=== PATIENT | female | born 1930 | race Caucasian/White ===

== ENCOUNTER 2019-06-08 09:21 | Observation (INO) ==
[2019-06-08 12:15] LABS: BASO# 0.01 X1000 (0.0-0.2); BASO% 0.2 % (0.0-0.8); EOS# 0.07 X1000 (0.0-0.7); EOS% 1.6 % (0.0-10.0); HEMATOCRIT 33.2 % (37.0-47.0); LYMPH# 1.58 X1000 (1.2-3.4); LYMPH% 36.6 % (20.5-51.1); MCH 29.5 PG (27-31); MCHC 33.1 g/dL (33-37); MONO# 0.41 X1000 (0.11-0.59); MONO% 9.5 % (1.7-9.3); MPV 8.8 FL (7.4-10.4); NEUT# 2.25 X1000 (1.4-6.5); NEUT% 52.1 % (42.2-75.2); PLT 140 X1000 (130-400); RBC 3.73 XMIL (4.2-5.4); RDW 14.4 % (11.5-14.5); WBC 4.32 X1000 (4.8-10.8)
--- NOTE | 2019-06-08 12:16 | Diag Imaging Result Doc PS360 ---
EXAM: CHEST-PORTABLE 06/08/2019 HISTORY: SOB TECHNIQUE: AP portable upright at 1204 COMMENT: There is no evidence of acute cardiac or pulmonary disease. There is an apparent fracture of the proximal left humerus which may be new since 01/23/2018. Otherwise are has been no significant change in the appearance of the chest. IMPRESSION: No evidence of acute cardiopulmonary disease. Electronically signed by Hossein Bennett 06/08/2019 12:14 PM
[2019-06-08] MEDS ORDERED: TYLENOL PO PRN (12:18)
[2019-06-08 12:41] LABS: ALB/GLOB RATIO 1.4; ALBUMIN 3.7 g/dL (3.5-5.0); CALCIUM 8.5 mg/dL (8.8-10.2); MAGNESIUM 2.4 mg/dL (1.5-2.7); PHOSPHORUS 4.3 mg/dL (2.7-4.5); POTASSIUM 4.5 mmol/L (3.5-5.1); TOTAL BILIRUBIN 0.25 mg/dL (0.20-1.00); TOTAL PROTEIN 6.3 g/dL (6.3-8.3)
[2019-06-08] MEDS: ISORDIL PO SCH ×2 (14:39→21:46)
[2019-06-08] MEDS: CARAFATE PO SCH ×2 (14:39→21:46)
[2019-06-08] MEDS: HEPARIN SUBQ SCH ×2 (14:39→21:47)
--- NOTE | 2019-06-08 14:40 | Diag Imaging Result Doc PS360 ---
EXAM: CT HEAD W/O CONTRAST 06/08/2019 HISTORY: encephalopathy TECHNIQUE: This exam was performed using automated exposure control, adjustment of mA or kV according to patient size, and/or use of iterative reconstruction technique. COMMENT: There is no evidence of mass effect, bleed, or abnormal extra-axial fluid collection. There are some calcifications in the left basal ganglia. Compared to the previous study of 12/31/2018 there has been no appreciable change in the appearance the brain. The visualized paranasal sinuses are clear. There is fluid in the middle ear on the left and there has been apparent previous left mastoidectomy. IMPRESSION: Stable CT of the head. Electronically signed by Hossein Bennett 06/08/2019 2:38 PM
--- NOTE | 2019-06-08 14:50 | ECHO REPORT ---
ORDER DATE: 06/08/2019 INTERPRETING PHYSICIAN: Dr. Gene Gould ECHOCARDIOGRAPHIC MEASUREMENTS: 1. Interventricular septum: 0.9 cm. 2. Posterior wall: 0.9 cm. 3. Diastolic diameter: 4.9 cm. 4. Left atrium: 3.6 cm. 5. Aortic root: 2.8 cm. SUMMARY OF THE 2-DIMENSIONAL IMAGIN. Mitral valve was normal. 2. Tricuspid valve was normal. 3. Aortic valve leaflets were trileaflet, mildly sclerosed, opening normally. 4. Pulmonic valve was normal. 5. There is mild left atrial enlargement. There is mitral annular calcification. 6. Normal left ventricular cavity size. Estimated ejection fraction of 65%. 7. There is diastolic dysfunction. 8. Mild mitral regurgitation. 9. Moderate tricuspid regurgitation. Peak velocity across the tricuspid valve was 3.5 m/sec. 10. Pulmonary artery systolic pressure of 58 mmHg. There is pulmonary arterial hypertension. 11. Peak velocity across the aortic valve less than 2 m/sec. By Doppler studies, there is no aortic stenosis or regurgitation. 12. There is no pericardial effusion or obvious intracardiac mass or thrombus. cc: MD Asim Lovett MD
[2019-06-08 15:12] LABS: URINE SOURCE CLEAN CATCH
[2019-06-08 15:16] LABS: BILIRUBIN URINE NEGATIVE (NEGATIVE); BLOOD URINE NEGATIVE (NEGATIVE); COLOR STRAW; GLUCOSE URINE NEGATIVE (NEGATIVE); KETONE URINE NEGATIVE (NEGATIVE); LEUKOCYTES URINE LARGE (NEGATIVE); NITRITE URINE NEGATIVE (NEGATIVE); PH URINE 6.5; PROTEIN URINE 70 mg/dL (NEGATIVE); SP GRAVITY URINE 1.005; TURBIDITY URINE HAZY (CLEAR); UROBILINOGEN URINE NORMAL (NORMAL)
[2019-06-08 15:17] LABS: UR EPITHELIAL CELLS <10 /HPF (<10); URINE BACTERIA 4+ /HPF; URINE RBC <10 /HPF (<10); URINE WBC TNTC /HPF (<10)
--- NOTE | 2019-06-08 17:32 | HISTORY AND PHYSICAL ---
CHIEF COMPLAINT: Presyncope. 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 She came in today and was sent by her primary doctor due to a pre syncopal episode today. She was told that the sodium level was low. Today in the morning she had blurry vision and headache located in the occipital area, radiated to the neck and shoulders, and some kind of generalized pain. Her daughter, which is at the bedside, gave her some fluids including water and Gatorade and she felt better. At the moment of my physical exam she seems to be doing good. She is completely alert and oriented. She does not have any focal deficits. We ask for an echocardiogram, carotid ultrasound and a CT scan of the head, chest x-ray as well. Chest x-ray did not show any evidence of acute full cardiopulmonary disease. Head CT scan without changes and an echocardiogram is significant for a pulmonary hypertension, but she does have an estimated ejection fraction of 65%. She has a some degree of diastolic dysfunction,pending carotic ultrasound. Laboratory showed a sodium level is 131 with a creatinine of 1, which looks like her baseline. She has bacteria in the urine as well as protein, some hyperglycemia, so I will check the A1c. I have started this patient on her home medications and I will use hydralazine as needed for hypertension. Depending on her lab work tomorrow I will get the either cardiology or nephrology department. I will keep an eye on her. She denies nausea, vomiting, diarrhea, constipation, headache, neck pain, chest pain, no tingling sensation or is or any specific/focal weakness. REVIEW OF SYSTEMS: All the 14 points of review of systems were reviewed all of them negative except as per HPI. PAST MEDICAL HISTORY: 1. Hyperthyroidism, treated with radioactive iodine, now she has hypothyroidism treated with levothyroxine. 2. Macular degeneration. 3. Decreased hearing, artificial ear drum. 4. Dementia. 5. Increased cholesterol. 6. Hyponatremia. 7. Medical history of multiple syncopal episodes. PAST SURGICAL HISTORY: 1. Right knee replacement. 2. Multiple ear multiple ear surgeries. 3. 2 back surgeries. 4. She had a history of left humeral fracture with no surgical treatment. 5. Carpal tunnel syndrome repair. FAMILY HISTORY: Mother with hypertension. She has 2 aunts with cervical cancer, 2 uncles with coronary artery disease. SOCIAL HISTORY: She lives with with . She uses a cane to be able to walk. No history of drug, alcohol, or tobacco abuse. ALLERGIES: Statins, and shellfish. PHYSICAL EXAMINATION: Vital signs temperature 98 degrees, pulse 78, respiratory rate 16, blood pressure 149/60, oxygen saturation 97% on room air. HEENT: Head normocephalic, no trauma. PERRLA. NECK: Neck is supple. No JVD. No masses. Central trachea. CHEST: Clear to auscultation. No wheezing. No rales. CARDIOVASCULAR: RRR. Possible systolic murmur. ABDOMEN: Soft, nontender, nondistended. No hepatosplenomegaly. EXTREMITIES: No edema no clubbing no cyanosis. NEUROLOGICAL: This patient is alert. She is oriented. She is able to answer all my questions. She moves all 4 extremities spontaneously. No focal weakness. She is able to recognize family members at the bedside and follow commands. LABORATORY: WBC 4.3, hemoglobin 11, hematocrit 33.2, platelets 140,000. Sodium 131, potassium 4.5, chloride 98, bicarbonate 23, BUN 39, creatinine 1, glucose 111, calcium 8.5, phosphorus 4.3, magnesium 2.4. LFTs within normal limits. Urinalysis with too numerous to count WBC, leukocyte count large, some protein and 4+ bacteria. ASSESSMENT AND PLAN: 1. Presyncopal episode in a patient with medical history of syncope. I had a CT scan of the head that is negative. I am getting a carotid ultrasound and also orthostatic vital sign., for now I will put her on a diet and I will continue her medications. She is feeling much better after receiving some fluids at home. Her kidney function is around her baseline. I will monitor this patient closely. Echocardiogram did not show any problem with ejection fraction but she has pulmonary hypertension. 2. Hyponatremia. Apparently, she has been having this problem for a little bit and actually I have multiple studies from this month and this year showing hyponatremia the lowest is 127. We will monitor for now. I do not think this is the cause of her presyncopal and syncopal episodes. We will monitor. Probably she needs to be seen by nephrology department. 3. Uncontrolled hypertension. As per the patient and the daughter, they have been trying multiple medication to try to control the blood pressure. I have placed this patient back on her home medications and I will monitor this patient closely. Let us see how she does with those medications. As per the daughter she has been up and down, which is either too high or too low. 4. Hypothyroidism, continue with levothyroxine. 5. Constipation continue with docusate. 6. Vitamin vitamin B12 deficiency. Continue with cyanocobalamin. 7. Further recommendations pending hospital course. cc: Asim Welsh MD
[2019-06-08] MEDS: OCUVITE LUTEIN & ZEAXANTHIN PO SCH (21:46)
[2019-06-08] MEDS: MELATONIN PO SCH (21:46)
[2019-06-08] MEDS: COLACE PO SCH (21:46)
[2019-06-09] MEDS: APRESOLINE IV PRN ×3 (00:58→20:54)
[2019-06-09] MEDS: HEPARIN SUBQ SCH ×3 (05:10→20:53)
[2019-06-09 06:21] LABS: BASO# 0.02 X1000 (0.0-0.2); BASO% 0.4 % (0.0-0.8); EOS# 0.11 X1000 (0.0-0.7); EOS% 2.4 % (0.0-10.0); HEMATOCRIT 35.9 % (37.0-47.0); HEMOGLOBIN 12.1 g/dL (12.0-16.0); IMM GRAN# 0.03 X1000 (0.0-0.04); IMM GRAN% 0.6 % (0.0-0.5); LYMPH% 30.1 % (20.5-51.1); MCH 29.9 PG (27-31); MCHC 33.7 g/dL (33-37); MCV 88.6 FL (81-99); MONO# 0.43 X1000 (0.11-0.59); MONO% 9.2 % (1.7-9.3); MPV 9.5 FL (7.4-10.4); NEUT# 2.66 X1000 (1.4-6.5); NEUT% 57.3 % (42.2-75.2); PLT 152 X1000 (130-400); RBC 4.05 XMIL (4.2-5.4); RDW 14.3 % (11.5-14.5); WBC 4.65 X1000 (4.8-10.8)
[2019-06-09] MEDS: SYNTHROID PO SCH (06:24)
[2019-06-09 06:31] LABS: HEMOGLOBIN A1C 6.3 % (4.8-6.0)
[2019-06-09 06:37] LABS: AGAP 8; BUN 28 mg/dL (8-22); CALCIUM 9.5 mg/dL (8.8-10.2); CHLORIDE 99 mmol/L (98-107); COSMO 269; CREATININE 0.8 mg/dL (0.5-0.9); ESTIMATED GFR > 60; GLUCOSE 112 mg/dL (70-104); MAGNESIUM 2.2 mg/dL (1.5-2.7); POTASSIUM 4.1 mmol/L (3.5-5.1); SODIUM 131 mmol/L (136-145); TCO2 24 mmol/L (25-35)
--- NOTE | 2019-06-09 07:00 | EKG Report ---
Test Performed on : 06/09/2019 06:17:09 AM Test Reason : chest pain Blood Pressure : / mmHG Vent. Rate : 056 BPM Atrial Rate : 056 BPM P-R Int : 156 ms QRS Dur : 072 ms QT Int : 428 ms P-R-T Axes : 074 068 081 degrees QTc Int : 413 ms Sinus bradycardia. Possible Septal infarct , age undetermined Abnormal ECG When compared with ECG of 31-DEC-2018 11:18, Possible Septal infarct is now present Confirmed by Kavon Earl MD ([id number]) on 06/09/2019 9:10:14 AM
[2019-06-09] MEDS: VITAMIN B-12 PO SCH (09:16)
[2019-06-09] MEDS: CARAFATE PO SCH ×3 (09:16→20:54)
[2019-06-09] MEDS: ISORDIL PO SCH ×3 (09:16→22:59)
[2019-06-09] MEDS: OCUVITE LUTEIN & ZEAXANTHIN PO SCH ×2 (09:16→20:53)
[2019-06-09] MEDS: COLACE PO SCH ×2 (09:16→20:53)
[2019-06-09] MEDS: ASPIRIN PO SCH (09:24)
[2019-06-09] MEDS ORDERED: CATAPRES PO PRN (10:41)
[2019-06-09] MEDS ORDERED: APRESOLINE IV PRN (10:55)
--- NOTE | 2019-06-09 11:03 | Carotid Study ---
DATE: 06/08/2019 PROCEDURE: Carotid duplex imaging. REFERRING PHYSICIAN: Asim Welsh MD. INTERPRETING PHYSICIAN: Nakul Mclain MD. TECH: [place]. INDICATIONS: Syncope. OBSERVED DATA RIGHT LEFT Brachial Blood Pressure Carotid Pulse Bruits: Carotid/Sub DIAGRAM OF ULTRASOUND IMAGING R L RIGHT INT EXT INT EXT LEFT Blayne (cm/s) Blayne (cm/s) Subclavian Subclavian CCA Proximal CCA Proximal CCA Distal CCA Distal Bulb Bulb ICA Proximal ICA Proximal ICA Mid ICA Mid ICA Distal ICA Distal ECA ECA Vertebral Vertebral ICA/CCA Ratio ICA/CCA Ratio % Stenosis % Stenosis FINDINGS: There is irregular calcific plaque at the takeoff of the right internal carotid artery, however, there are no significantly elevated velocities or turbulent flow in either carotid system. There is antegrade vertebral flow bilaterally. Percent stenosis is 0-39% bilaterally. PHYSICIAN INTERPRETATION: Mild plaque disease as described. cc: MD Asim Deluca MD
[2019-06-09] MEDS: COZAAR PO SCH (11:49)
[2019-06-09] MEDS ORDERED: ROCEPHIN 1 GM in NS 50 ML IV SCH (14:30)
--- NOTE | 2019-06-09 14:38 | PROGRESS NOTE ---
DATE: 06/09/2019 SUBJECTIVE: This patient's blood pressure increased in the morning between the 180s and 200. She received a dose of hydralazine 10 and the blood pressure dropped to 119, and she was dizzy but then, probably an hour later, her blood pressure was elevated again in the 170s. It looks like she also came in dehydrated but the creatinine is already within normal limits and the BUN is better as well. She has a history of chronic hyponatremia. I have consulted nephrology department to evaluate this patient for the hyponatremia and the uncontrolled blood pressure. OBJECTIVE: Vital Signs: Temperature 98 degrees, pulse 66, respiratory rate 16, blood pressure 174/51, oxygen saturation 96 on room air. HEENT: Head normocephalic. No trauma. PERRLA. Neck: Supple. No JVD. No masses. Central trachea. Chest: Clear to auscultation. No wheezing. No rales. Cardiovascular: RRR. Probably a systolic murmur. Bradycardic. Abdomen: Soft, nontender, nondistended. No hepatosplenomegaly. Extremities: No edema, no clubbing, no cyanosis. Neurological Examination: The patient is alert. She is oriented. She is having dizziness, even when she does not move and she is just sitting. She moves all 4 extremities. No focal weakness. She is able to recognize family members at the bedside and she is following commands. She is hard of hearing. Laboratory: WBC 4.6, hemoglobin 12.1, hematocrit 35.9, platelets 152,000. Sodium 131, potassium 4.1, chloride 99, bicarbonate 24, BUN 28, creatinine 0.8, glucose 112, calcium 9.5, magnesium 2.2. ASSESSMENT AND PLAN: 1. Presyncopal episode in a patient with medical history of syncope. CT scan of the head, ultrasound of the neck/carotid ultrasound, and echocardiogram were performed. Echocardiogram showed a good ejection fraction but she has pulmonary hypertension. Her blood pressure has been up and down. In the morning, her blood pressure was in the 180s up to 200. She receive 1 single dose of hydralazine 10 and the blood pressure dropped really fast to 119, and she felt dizzy. I have decreased the dose of hydralazine from 10 to 5. 2. Hyponatremia. Apparently, she has been having this problem for a while. I have requested the nephrology department to evaluate this patient. I do not think this is the cause of her syncope or dizziness. 3. Uncontrolled hypertension, as per #1. Apparently, this patient has been monitored by the cardiology department as well as an outpatient and it has been really hard to control her blood pressure. As per the daughter, it is either too high or too low. 4. Hypothyroidism. Continue with levothyroxine. 5. Constipation. Continue with docusate. 6. Vitamin B12 deficiency. Continue with cyanocobalamin. 7. Prediabetes. She does have a hemoglobin A1c of 6.3. cc: Asim Welsh MD
--- NOTE | 2019-06-09 16:26 | NEPHROLOGY CONSULTATION ---
DATE: 06/09/2019 REASON FOR ADMISSION: Presyncopal episode. REASON FOR CONSULT: Hyponatremia CONSULTING PHYSICIAN: Asim Welsh MD HISTORY OF PRESENT ILLNESS: Ms. Strauss is an 88-year-old white female who has a past medical history of hyponatremia dating back to 2012. At that time, her sodium range was 129-135. The patient states that she has had these episodes in the past. Daughter is at the bedside and states that, when these normally occur, she brings her to the emergency room, patient is given some Lasix with IV fluids, patient feels much better, and then she has been taken home. Unfortunately, this episode, she had a presyncopal episode which came on the day of her admission. She went to her primary care physician, and she states that she has received IV fluids in their office. She had blurry vision and headache located in the occipital area that radiated down the neck and into the shoulders. She stated that she just experienced an overall generalized pain, felt that she was spinning, not the room. At this time, she is resting in bed. Her daughter is at her bedside. She denies any chest pain. No increased work of breathing. No nausea, vomiting, no diarrhea. No complaints of chest pain or increased work of breathing. No increased lower extremity swelling. The patient had a CT of the head, which was negative for acute disease, carotid Doppler study showing mild plaque, an echocardiogram which was essentially negative with an ejection fraction of 65%, and a chest x-ray that was completed that was essentially negative. Sodium was initially 131 on admission; it is still 131 today, though patient states she feels much better. She denies any changes of sensation. No tingling sensations. No loss of consciousness. No specific focal weakness. PAST MEDICAL HISTORY: Hyperthyroidism treated with radioactive iodine and now hypothyroidism, macular degeneration, decreased hearing, artificial ear drum, dementia, increased cholesterol, hyponatremia in the past, history of multiple syncopal episodes. PAST SURGICAL HISTORY: Listed as right knee replacement, multiple ear surgeries, 2 back surgeries, history of left humeral fracture with no surgical treatment, carpal tunnel syndrome repair. FAMILY HISTORY: Mother with hypertension. Two aunts with cervical cancer. Two uncles with coronary artery disease. SOCIAL HISTORY: She lives with her . Her daughter is attentive to her care. She uses a cane to walk. She has no history of tobacco, alcohol, or illicit drug use. ALLERGIES: Listed as statins and shellfish. HOME MEDICATIONS: Isosorbide dinitrate, losartan potassium, PreserVision AREDS soft gel, levothyroxine, Carafate, enteric-coated aspirin low-dose, Catapres, B12, Colace, and melatonin. REVIEW OF SYSTEMS: Times 10 with pertinent positives listed above in the HPI. VITAL SIGNS: Temperature 98 degrees blood pressure 119/50, heart rate 66, respirations 16, she is on room air, last recorded saturation 96% INTAKE AND OUTPUT: She has had 240 in. She has had 400 out to void. LABORATORY DATA: Sodium is 131, potassium 4.1, chloride 99, CO2 of 24, BUN 28, creatinine 0.8, glucose is 112, her anion gap is 8, calcium is 9.5. Magnesium 2.2. White count 4.65, hemoglobin 12.1, hematocrit 35.9 with a platelet count of 152,000. TSH of 1.86. Patient's urinalysis is positive for gram-negative rods, sensitivity to follow, urine sodium is 45. We have ordered a urine osmolality; this is still pending. I did not find in previous labs any urine osmolality. On her last admission, patient did have metanephrines checked; these were all normotensive. She had actually had urine fractionated catecholamines; these are all within normal limits. PHYSICAL EXAMINATION: This is an 88-year-old elderly female. She appears frail, though no acute distress. Skin is warm and dry.HEENT: Normocephalic, atraumatic. Conjunctiva is pale. She has JULIÁN. Mucous membranes are dry. Neck: Supple. Trachea midline. No evidence of JVD. Cardiovascular: She has regular rate and rhythm. She does have a systolic murmur. Lungs: Clear to auscultation bilaterally, equal excursion on room air. Abdomen: Soft. Nontender. Positive bowel sounds. Genitourinary: Not inspected. Patient has been voiding. Adequate amount has been documented. Neurological: She is alert. She is oriented. She is able to answer most questions. She moves all extremities well. She has no deficit noted. Able to assist with exam. Forgetful to previous events. ASSESSMENT AND PLAN: 1. Hyponatremia. This appears to be ongoing, noted all the way back to 2012 with a sodium of 129 to 135. Daughter states that she has had low sodium restriction. No changes at this time. We will put her on a fluid restriction of 1 L. We will repeat labs this evening and in the a.m. Recently taken off hydrochlorothiazide 1 week ago by primary care. 2. Presyncopal episode. This is currently being followed by primary care with negative CT scan. I would like to thank you for allowing us to follow with this patient. Dictated by MARIO Goel for Isaiah Slaughter MD Face to face encounter, data reviewed, discussed with Eleno Almodovar on 06/09/19. I agree with the above assessment and plan of care. cc: MARIO Goel MD [facility]
[2019-06-09 16:47] LABS: AGAP 13; ALBUMIN 3.8 g/dL (3.5-5.0); BUN 28 mg/dL (8-22); CALCIUM 9.6 mg/dL (8.8-10.2); CHLORIDE 101 mmol/L (98-107); COSMO 278; CREATININE 0.7 mg/dL (0.5-0.9); ESTIMATED GFR > 60; GLUCOSE 109 mg/dL (70-104); PHOSPHORUS 3.1 mg/dL (2.7-4.5); POTASSIUM 4.1 mmol/L (3.5-5.1); SODIUM 136 mmol/L (136-145); TCO2 22 mmol/L (25-35)
[2019-06-09] MEDS: MELATONIN PO SCH (20:54)
[2019-06-10] MEDS: HEPARIN SUBQ SCH (03:40)
[2019-06-10] MEDS: APRESOLINE IV PRN (03:51)
[2019-06-10] MEDS: SYNTHROID PO SCH ×2 (05:52→06:02)
[2019-06-10 06:48] LABS: AGAP 13; ALBUMIN 3.9 g/dL (3.5-5.0); BUN 28 mg/dL (8-22); CALCIUM 9.3 mg/dL (8.8-10.2); CHLORIDE 100 mmol/L (98-107); COSMO 275; CREATININE 0.8 mg/dL (0.5-0.9); ESTIMATED GFR > 60; GLUCOSE 117 mg/dL (70-104); PHOSPHORUS 3.3 mg/dL (2.7-4.5); SODIUM 134 mmol/L (136-145); TCO2 21 mmol/L (25-35)
[2019-06-10] MEDS ORDERED: APRESOLINE PO SCH (07:45)
[2019-06-10 07:54] VITALS: BP 163/65
[2019-06-10] MEDS: VITAMIN B-12 PO SCH (08:56)
[2019-06-10] MEDS: OCUVITE LUTEIN & ZEAXANTHIN PO SCH (08:56)
[2019-06-10] MEDS: ASPIRIN PO SCH (08:56)
[2019-06-10] MEDS: CARAFATE PO SCH (08:56)
[2019-06-10] MEDS: COZAAR PO SCH (08:56)
[2019-06-10] MEDS: COLACE PO SCH (08:57)
--- NOTE | 2019-06-10 13:16 | NEPHROLOGY PROGRESS NOTE ---
DATE: 06/10/2019 SUBJECTIVE: Ms. Strauss is resting quietly, sitting up in a chair. Her daughter is at her bedside. She denies any pain. States that she has not slept during the night. OBJECTIVE: VITAL SIGNS: Temperature 97.6 degrees, blood pressure 203/68, heart rate 64, respirations 16. She is currently on room air. She has had 1040 in, she has had 200 out to void plus. LABORATORY DATA: Sodium 134, potassium 4, chloride 100, CO2 21, BUN 28, creatinine is 0.8, glucose of 117. She has an anion gap of 13, calcium 9.3, phosphorus 3.3, albumin 3.9. Previous hemoglobin of 12.1. Positive Escherichia coli in her urine, currently on antibiotics. Urine osmolality completed yesterday is 396, which is elevated, though it was equivalent to her sodium of 136 at the time of draw. PHYSICAL EXAMINATION: General: This is an 88-year-old white female sitting up in a chair. She is in no acute distress. Skin: Warm and dry. HEENT: Normocephalic, atraumatic. Conjunctivae pale pink. She has JULIÁN. Mucous membranes are dry. Neck: Supple. Trachea midline. No evidence of JVD. Cardiovascular: She is regular rate and rhythm. She has an S4. Lungs: Clear to auscultation bilaterally. Equal excursion on room air. Abdomen: Soft, nontender. Positive bowel sounds. Genitourinary: Not inspected. She has had adequate urine out. Extremities: Have no edema. No clubbing or cyanosis. Neurological: She is alert to person and to place. Forgetful to events. ASSESSMENT AND PLAN: 1. Hyponatremia. Not likely causing her symptoms. Modest fluid restriction only. 2. Hypertension. We have discussed with the patient that a higher blood pressure is actually better than a lower blood pressure. The daughter is present, states understanding. She is to work with her primary care in regard with blood pressure control. If her blood pressure is elevated, then she is to lie down and allow blood pressure to settle. 3. Presyncopal episode. Negative CT scan. Symptoms may be related to her hypertension than her hyponatremia. Followed by the primary care. I would like to thank you for allowing us to follow with this patient. We will sign off at this time. No indications for followup in our office. Dictated by MARIO Goel for Isaiah Slaughter MD Face to face encounter, data reviewed, discussed with Eleno Almodovar on 06/10/19. I agree with the above assessment and plan of care. cc: MARIO Goel MD [facility]
--- NOTE | 2019-06-10 13:25 | DISCHARGE SUMMARY ---
ADMISSION DATE: 06/08/2019 DISCHARGE DATE: 06/10/2019 DISCHARGE DIAGNOSES: 1. Presyncopal episode in a patient with medical history of syncope. 2. Hyponatremia. 3. Uncontrolled hypertension with episodes of hypotension. 4. Hypothyroidism. 5. Constipation. 6. B12 deficiency. 7. Pre diabetes. PROCEDURES PERFORMED: 1. Chest x-ray dated 06/08/2019. Impression: No evidence of acute cardiopulmonary disease. 2. Head CT dated 06/08/2019. Stable CT of the head. 3. Carotic Doppler ultrasound dated 06/08/2019. Findings: There is an irregular calcified plate at the takeoff of the right internal carotid artery. However, there is no significant elevated velocities or turbulent flow in either carotid system. There is antegrade vertebral flow bilaterally, percent stenosis is 0 to 39 percent bilaterally. 4. Echocardiogram dated 06/08/2019, ejection fraction of 65%. There is diastolic dysfunction and pulmonary artery systolic pressure of 58 mmHg. There is pulmonary arterial hypertension. The aortic valve were 3 leaflets, mildly sclerosed and opened normally. Some mitral annular calcification as well. Consult Nephrology Department. HOSPITAL COURSE: An 88-year-old female with a past medical history of hyperthyroidism treated with radioactive iodine. 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 Apparently, it has been happening since last year and also last week. She came in and was admitted on 06/08/2019 after being seen by her doctor due to a presyncopal episode that day. Also, she was told that the sodium level was low. The day of admission she presented with double vision, blurry vision in the morning and headache located mostly in the occipital area, radiated to the neck and shoulders, and some kind of generalized pain. She has been always with her daughter which has been at the bedside. The morning of admission, she gave her some fluids including water and Gatorade, and she felt better. When I examined this patient at the moment of admission, her physical exam was benign. She was completely alert. She was oriented even though she has dementia. No focal deficits. Echocardiogram, carotid ultrasound and CT of the head and chest x-ray did not show any acute abnormality. We noticed that during the course of her hospitalization, the blood pressure was high up to the 200s, but she was really sensitive to treatment. She received 1 dose of hydralazine 10 mg IV, and the blood pressure dropped from 180s to 110's and she had an episode of dizziness. Nephrology Department was consulted and we checked the medications together. We will continue with the losartan, and we will add a low dose of hydralazine, but we will avoid isosorbide. We had a large conversation about the sodium level on this patient. We do not have a clear evidence of SIADH, but she responded to fluid restriction. Her kidney function improved after admission so I believe she was not drinking too much water or fluids at home probably because of her dementia. She came in dehydrated. As soon as she started getting food here and water/ fluids here through her mouth, the kidney function improved immediately. We have recommended to continue with at least 1.5 L of fluids a day to try to keep the blood sodium controlled. On the other hand, like I mentioned before, I will stop the isosorbide, and I will start a low dose of hydralazine 10 mg every 8 hours. Continue with losartan as well. Likely, this high blood pressure is due to basal stiffness due to her age, and we need to avoid hypotension. She is feeling good today. She has no symptoms today. She was a little bit restless during the night due to her dementia and confusion. Her daughter is at the bedside. The case has been discussed with her, and they agree with the assessment and plan. PHYSICAL EXAMINATION: Vital Signs: Temperature 97.9 degrees, pulse 63, respiratory rate 16, blood pressure 163/65, oxygen saturation 97% on room air. HEENT: Normocephalic. No trauma. PERRLA. Neck: Supple. No JVD. No masses. Central trachea. Chest: Clear to auscultation. No wheezing. No rales. Abdomen: Soft. Nontender. Nondistended. No hepatosplenomegaly. Extremities: No edema. No clubbing. No cyanosis. Neurological: The patient is alert. She is oriented. She is able to recognize family members at the bedside, and she is moving all four extremities. LABORATORY: Sodium 134, potassium 4, chloride 100, bicarbonate 21, BUN 28, creatinine 0.8 glucose 117, calcium 9.3, and albumin 3.9. DISCHARGE MEDICATIONS: 1. Aspirin 81 mg p.o. daily. 2. Vitamin B12 1000 mcg p.o. daily. 3. Docusate 100 mg p.o. b.i.d. 4. Hydralazine 10 mg p.o. q.8 hours. 5. Levothyroxine 137 mcg p.o. daily. 6. Losartan 100 mg p.o. daily. 7. Melatonin 10 mg p.o. at bedtime. 8. Carafate 1 g p.o. t.i.d. 9. PreserVision Ards soft gel 1 tablet p.o. b.i.d. FOLLOWUP: 1. Follow with her primary care doctor. Also they can contact me for any question. She will continue with fluid restriction up to 1.5 L and monitor her blood sugar at home. 2. She does have dementia and probably she needs to be supervised at home as well. TIME SPENT: Time discharging this patient, and discussing with the family at the bedside at least 45 minutes. cc: Asim Welsh MD MTDD
== END 2019-06-10 11:31 | disposition home health service (06) ==
LOC: SUATTDRO 09:21 → DIRADM 09:21 → INTOOBSV 09:21 → 4N 09:35
PROVIDERS: ATTEND Internal Medicine
CPT/HCPCS: 70450; 71010; 71045; 80048; 80053; 80069; 81001; 83036; 83735; 83930; 83935; 84100; 84300; 84439; 84443; 85025; 87077; 87088; 87186; 93005; 93010; 93306; 93880; A9270; J0360; J0696; J1644